=== PATIENT | female | born 1955 | race Caucasian/White ===

== ENCOUNTER 2021-03-25 11:27 | Emergency (ER) | payer OTHER ==
[2021-03-25 12:31] LABS: HEMOGLOBIN 12.8 gm/dl (12.3-15.3); RED BLOOD COUNT 4.14 M/UL (4.00-5.10); WHITE BLOOD COUNT 3.9 K/UL (4.5-11.0)
[2021-03-25 13:14] LABS: BUN/CREATININE RATIO 13 (0-10)
[2021-03-25] MEDS ORDERED: TESSALON PERLE100 MG PO (13:28)
== END 2021-03-25 13:39 | disposition home or self-care (01) ==
LOC: ER1 11:27
PROVIDERS: Nurse Practitioner
DX: U07.1 COVID-19 (principal); J06.9 Acute upper respiratory infection, unspecified; U09.9 Post COVID-19 condition, unspecified; Z88.8 Allergy status to other drugs, medicaments and biological substances
CPT/HCPCS: 71045; 80053; 85025; 85610; 93005; 96374; 96375; 99285; J1885; J2405

== ENCOUNTER → 2021-05-06 | Outpatient (CLI) | payer OTHER ==
[~2021-05-06] MED LIST: TESSALON PERLE100 MG PO
== END ==
LOC: KOH-I 12:35
DX: J18.9 Pneumonia, unspecified organism (principal)
CPT/HCPCS: 71046

== ENCOUNTER → 2021-11-11 | Outpatient (CLI) | payer OTHER | LOC: KOH-I 09:40 | DX: M54.50 Low back pain, unspecified (principal); M43.16 Spondylolisthesis, lumbar region | CPT/HCPCS: 72100 ==

== ENCOUNTER → 2021-12-17 | Outpatient (CLI) | payer OTHER | LOC: KOH-I 10:10 | DX: M43.16 Spondylolisthesis, lumbar region (principal); M51.36 Other intervertebral disc degeneration, lumbar region | CPT/HCPCS: 72148 ==